=== PATIENT | female | born 2005 | race Two or more races ===

== ENCOUNTER 2025-03-15 20:15 | Emergency (ER) | payer MEDICAID, SELFPAY ==
[2025-03-15 20:15] VITALS: BMI 26.4
[2025-03-15 20:47] VITALS: BP 131/85; PULSE 66; RESP 18; TEMP 36.8; O2SAT 100
--- NOTE | 2025-03-15 21:04 | PD.EDANIML ---
ED Animal Bite RME/HPI General Chief Complaint: Animal Bite Stated Complaint: DOGBITE TO LEFT HAND Time Seen by Provider: 03/15/25 20:19 Arrival date/time: 03/15/25 20:15 This is a case of 19-year-old female with no medical history came in in the emergency room due to left wrist injury secondary to dog bite history of present illness started 1 hour prior to arrival in the emergency room patient was trying to feed the dog and accidentally had dog bite and sustained a 2 cm laceration on the left wrist no other injury dog has updated rabies vaccine patient tetanus shot is not up-to-date Limitations: no limitations Related Data Previous Rx's ?Medication ?Instructions ?Recorded ibuprofen 400 mg tablet 400 mg PO Q8H PRN fever or pain 04/03/24 #20 tabs amoxicillin 875 mg-potassium 1 tab PO BID #20 tabs 03/15/25 clavulanate 125 mg tablet ibuprofen 600 mg tablet 600 mg PO Q8H PRN pain #20 tabs 03/15/25 mupirocin 2 % topical ointment 1 applic topical TID #22 grams 03/15/25 (Centany) Allergies Allergy/AdvReac Type Severity Reaction Status Date / Time NKA* Allergy Uncoded 04/03/24 09:01 Review of Systems Review of Systems Systems Reviewed: All systems reviewed, normal except as documented Past Medical History Social History SMOKING STATUS: Never smoker ED Exam General Limitations: Present no limitations General appearance: Present alert, in no apparent distress and other Head Head exam: Present atraumatic, normocephalic and normal inspection Eye Eye exam: Present normal appearance, PERRL and EOMI ENT ENT exam: Present normal exam, normal oropharynx and mucous membranes moist Neck Neck exam: Present normal inspection, full ROM and trachea midline; Absent tenderness, meningismus, lymphadenopathy or thyromegaly Chest Chest inspection: Present normal inspection and symmetric chest wall rise; Absent tenderness Respiratory Respiratory exam: Present normal lung sounds bilaterally; Absent respiratory distress, wheezes, stridor, accessory muscle use or prolonged expiratory phase Cardiovascular Cardiovascular exam: Present regular rate, normal rhythm and normal heart sounds; Absent bradycardia, tachycardia, irregular rhythm, systolic murmur or diastolic murmur Abdominal Exam Abdominal exam: Present soft and normal bowel sounds; Absent distention, tenderness, guarding, rebound, rigidity, diminished bowel sounds, hyperactive bowel sounds, hypoactive bowel sounds or organomegaly Extremities Exam Extremities exam: Present normal inspection and full ROM Expanded Upper Extremity Exam Forearm/Wrist exam: Present laceration and other (Laceration 2 cm linear minimal bleeding no foreign body no bone or tendon injury no abscess no cellulitis ROM is intact pulses were full and equal capillary refill less than 2 seconds sensory intact); Absent tenderness, swelling, abrasion, ecchymosis, deformity, crepitus, dislocation, erythema, tenderness over anatomical snuff box or pain with axial thumb loading Back Exam Back exam: Present normal inspection and full ROM Neurological Exam Neurological exam: Present alert, oriented X3, CN II-XII intact, normal gait and reflexes normal; Absent motor sensory deficit Psychiatric Psychiatric exam: Present normal affect and normal mood Skin Skin exam: Present warm, dry, intact, normal color and other (Wrist laceration noted) Course Quality Measures none Orders Category Date Time Status Amoxicillin/Pot Clav 875 [Augmentin 875] Med 03/15/25 20:59 Discontinued 1 tab PO X1 ONE Ibuprofen Tab [Motrin Tab] Med 03/15/25 20:59 Discontinued 600 mg PO X1 ONE Vital Signs Vital signs: Vital Signs Temperature 98.2 F 03/15/25 20:47 Pulse Rate 66 03/15/25 20:47 Respiratory Rate 18 03/15/25 20:47 Blood Pressure 131/85 H 03/15/25 20:47 Pulse Oximetry (%) 100 03/15/25 20:47 Oxygen Delivery Method Room Air 03/15/25 20:47 Oxygen saturation is 100% in room air PROCEDURES: Laceration Laceration 1: Side (If applicable): left (Left wrist) Size (cm): 2 Description: linear Depth: simple, single layer Local Anesthetic: lidocaine 1% Amount of anesthesia used (mL): 5 Pre-repair: wound explored, irrigated extensively and deep structures intact Skin layer closed with: nylon Suture size (cm): 4-0 Number of sutures: 4 Technique: simple, interrupted Animal Bite MDM Narrative MDM Narrative:: This is a case of 19-year-old female with no medical history came in in the emergency room due to left wrist injury secondary to dog bite history of present illness started 1 hour prior to arrival in the emergency room patient was trying to feed the dog and accidentally had dog bite and sustained a 2 cm laceration on the left wrist no other injury dog has updated rabies vaccine patient tetanus shot is not up-to-date Physical examination patient is awake alert oriented not in distress nontoxic looking well-hydrated well-nourished patient sustained a 2 cm laceration on the left wrist minimal bleeding no foreign body no bone or tendon injury no cellulitis no abscess no cellulitis ROM is intact pulses were full and equal capillary refill less than 2 seconds sensory is intact laceration repair was performed patient tolerated well the procedure bleeding controlled no complication noted procedure done by Tichnor protocol and via sterile technique patient will follow-up with PCP in 2 days for reevaluation and wound check and 10 days for removal of suture patient was given Tdap here in the emergency room ibuprofen and started on Augmentin patient was prescribed with Augmentin and mupirocin ointment to prevent infection for any worsening symptoms or signs and symptoms of infection return precaution in the ER was advised Patient was discharged with comfortable condition walking with stable gait. Patient verbalized no further complains explained diagnosis and answered patient question. Patient is comfortable with the proposed management plan including the need to follow up with his/her primary care physician and any specialist if applicable Discussed patient for any urgent condition or worsening sx, He/She needed to go to emergency room immediately or call 911. Patient acknowledge the responsibility to follow up as instructed and to monitor her/his symptoms. For any persistence of the symptoms for more than 3-5 days return precaution advised. Discussed the result of the test and was given printed discharge instruction Patient data External records reviewed:: [facility] previous records Clinical information provided by:: patient Social determinants that could affect healthcare access:: none Patient has the following chronic illnesses:: None How is presenting disease/condition affected by chronic disease/condition?: no chronic disease Evaluation data The following diagnostics were reviewed and interpreted by me:: other (specify) (None) Lab and/or radiology exams considered but not ordered:: None Interpretation Summary: None Medications / Prescriptions Medications or Prescriptions considered but not ordered:: Given Medication administrations:: Medication Administration History Discontinued Medications Amoxicillin/Clavulanate Potassium (Amoxicillin/Pot Clav 875 Tablet) 1 tab PO X1 ONE Stop: 03/15/25 21:00 Last Admin: 03/15/25 21:32 Dose: 1 tab Documented By: GARRISON Ibuprofen (Ibuprofen Tab 600 Mg Tablet) 600 mg PO X1 ONE Stop: 03/15/25 21:00 Last Admin: 03/15/25 21:32 Dose: 600 mg Documented By: MF Given Consultations Consultation(s) initiated? (list below): No Diagnosis Differential diagnosis animal bite: dog bite Most likely diagnosis given after review of the tests above:: Dog bite left laceration wrist Admission Indicated Admission indicated?: not indicated Explain why admission is indicated or not indicated:: Not indicated Admission Request Was there a request for admission?: No Disposition Plan Disposition Plan: Discharge Discharge Attestation Discharge Attestation: The patient and all family members were given an opportunity to ask questions and understood the discharge instructions. Discharge instructions specifically effects, indications for sooner follow up or return to the emergency department, and the expected course of current diagnosis. Patient condition: Stable Discharge Plan Plan Patient Disposition: HOME (Self Care) Patient condition on transfer: Stable Prescriptions/Referrals Prescriptions/Med Rec: New amoxicillin-pot clavulanate 875-125 mg tablet 1 tab PO BID Qty: 20 0RF mupirocin [Centany] 2 % ointment 1 applic topical TID Qty: 22 0RF ibuprofen 600 mg tablet 600 mg PO Q8H PRN (Reason: pain) Qty: 20 0RF No Action ibuprofen 400 mg tablet 400 mg PO Q8H PRN (Reason: fever or pain) Qty: 20 0RF Problem List Clinical Impression: Dog bite, Laceration of wrist Patient/Caregiver Discharge Instructions Education Materials: Suture Care, ED Dog Bite, ED Laceration: All Closures Additional Instructions: Follow-up with your primary care physician in 2 days for reevaluation and wound check and 10 days for removal of suture worsening symptoms or any emergent concerns such as redness swelling discharge from the wound pain fever chills return to the emergency room immediately or call 911 finish the course of antibiotic keep the wound clean and dry Print Language: Swedish Stand Alone Forms: Madina Award Info., Patient Portal Info Letter PA/MORENO Supervising Physician LAINE/MORENO Supervising Physician: dr page
[2025-03-15] MEDS: AMOXICILLIN/POT CLAV 875 TABLET 1 TAB PO (21:32)
[2025-03-15] MEDS: IBUPROFEN TAB 600 MG TABLET PO (21:32)
== END 2025-03-15 21:38 | disposition home or self-care (01) ==
PROVIDERS: Emergency Provider Emergency Medicine
DX: S61.452A Open bite of left hand, initial encounter (principal); S61.559A Open bite of unspecified wrist, initial encounter; W54.0XXA Bitten by dog, initial encounter
CPT/HCPCS: 12001; 99283; A9270